=== PATIENT | male | born 1985 | race Caucasian/White ===

== ENCOUNTER 2017-02-18 14:00 | Emergency (ER) | payer MEDICARE ==
[~2017-02-18] VITALS: Ht 182.9 cm; Wt 72.6 kg
[~2017-02-18 14:00] MED LIST: DIVA125T2 PO; HALO5AMP3 PO; ZIPR20CA2 PO
[2017-02-18 14:02] VITALS: BP 128/73
[2017-02-18] MEDS ORDERED: BACITRACIN ZINC OINT 500U/GM, 0.9 GM ONE (14:43)
== END 2017-02-18 14:58 | disposition home or self-care (01) ==
LOC: ED 14:50
DX: S80.861A Insect bite (nonvenomous), right lower leg, initial encounter (principal); E11.9 Type 2 diabetes mellitus without complications; F17.200 Nicotine dependence, unspecified, uncomplicated; W57.XXXA Bitten or stung by nonvenomous insect and other nonvenomous arthropods, initial encounter; Y93.89 Activity, other specified; Y92.89 Other specified places as the place of occurrence of the external cause; Y99.8 Other external cause status
CPT/HCPCS: 99283

== ENCOUNTER 2017-02-23 19:44 | Observation (INO) | payer MEDICARE, MEDICAID ==
[~2017-02-23] VITALS: Ht 190.5 cm; Wt 86.4 kg
[2017-02-23 21:30] LABS: HEMATOCRIT 42.2 % (39.2-51.8); WHITE BLOOD COUNT 10.9 x10^3/uL (3.4-10)
[2017-02-23 21:42] LABS: ASPARTATE AMINO TRANSFERASE 38 U/L (15-37); BLOOD UREA NITROGEN 13 mg/dL (7-18)
[2017-02-23 21:45] LABS: ACETAMINOPHEN < 2 mcg/mL (10-30)
[2017-02-23] MEDS ORDERED: ZIPRASIDONE 20 MG INJ IM ONE (22:00)
[2017-02-24 01:33] LABS: DAU SCREEN DISCLAIMER
[2017-02-24] MEDS ORDERED: ZIPRASIDONE 20 MG INJ IM PRN (04:30)
[2017-02-24] MEDS ORDERED: BENZTROPINE 1 MG TABLET PO PRN (04:30)
[2017-02-24 08:56] VITALS: BP 122/77
== END 2017-02-24 21:05 ==
LOC: ED 19:49 → EDIP 02-24 02:27 → 3E 02-24 04:48
PROVIDERS: ADMIT Internal Medicine; ATTEND Internal Medicine
DX: F25.9 Schizoaffective disorder, unspecified (principal); R65.10 Systemic inflammatory response syndrome (SIRS) of non-infectious origin without acute organ dysfunction; T63.301A Toxic effect of unspecified spider venom, accidental (unintentional), initial encounter; R45.851 Suicidal ideations; F31.9 Bipolar disorder, unspecified; E11.9 Type 2 diabetes mellitus without complications; Z59.0 Homelessness; Y92.89 Other specified places as the place of occurrence of the external cause
CPT/HCPCS: 36415; 80053; 80307; 80329; 85025; 96372; 99285; G0378; J3486; G0480

== ENCOUNTER 2017-11-20 04:31 | Observation (INO) | payer MEDICARE ==
[~2017-11-20] VITALS: Ht 182.9 cm; Wt 74.2 kg
[2017-11-20] MEDS ORDERED: ZIPRASIDONE 20 MG INJ IM ONE ×2 (04:51→05:00)
[2017-11-20 05:27] LABS: AMPHETAMINE SCREEN, URINE Negative (Negative); BARBITURATE SCREEN, URINE Negative (Negative); BENZODIAZEPINE SCREEN, URINE Negative (Negative); CANNABINOID SCREEN, URINE Negative (Negative); COCAINE SCREEN, URINE Negative (Negative); METHADONE SCREEN, URINE Negative (Negative); OPIATE SCREEN, URINE Negative (Negative)
[2017-11-20 05:48] LABS: ALBUMIN 3.4 g/dL (3.4-5.0); ANION GAP 5 mmol/L (5-15); CALCIUM 7.8 mg/dL (8.5-10.1); CHLORIDE 108 mmol/L (98-107); CREATININE 0.72 mg/dL (0.7-1.3); SALICYLATE LEVEL 1.9 mg/dL (2.8-20.0)
[2017-11-20 05:50] LABS: ACETAMINOPHEN < 2 mcg/mL (10-30)
[2017-11-20 05:51] LABS: BASOPHILS # (AUTO) 0.02 x10^3/uL (0-0.1); BASOPHILS % (AUTO) 0 % (0-1); EOSINOPHILS # (AUTO) 0.19 x10^3/uL (0-0.4); EOSINOPHILS % (AUTO) 3 % (1-7); LYMPHOCYTES # (AUTO) 1.75 x10^3/uL (1-3.4); LYMPHOCYTES % (AUTO) 23 % (22-44); MD NO; MEAN CORPUSCULAR HEMOGLOBIN 31.2 pg (27.5-34.5); MEAN CORPUSCULAR HGB CONC 34.2 g/dL (33.2-36.2); MEAN CORPUSCULAR VOLUME 91.3 fL (81-97); MEAN PLATELET VOLUME 7.8 fL (7.4-10.4); MONOCYTES # (AUTO) 0.71 x10^3/uL (0.2-0.8); MONOCYTES % (AUTO) 9 % (2-9); NEUTROPHILS # (AUTO) 4.96 x10^3/uL (1.8-6.8); NEUTROPHILS % (AUTO) 65 % (42-75); PLATELET COUNT 255 x10^3/uL (130-400); RED BLOOD COUNT 3.91 x10^6/uL (4.38-5.82); RED CELL DISTRIBUTION WIDTH 13.7 % (9.4-14.8)
[2017-11-20] MEDS ORDERED: LORazepam 1MG TABLET PO PRN (12:30)
[2017-11-20 17:46] VITALS: BP 118/69
== END 2017-11-20 17:49 ==
LOC: ED 08:25 → EDIP 10:06
PROVIDERS: ADMIT Internal Medicine; ATTEND Internal Medicine
DX: R45.851 Suicidal ideations (principal); F31.9 Bipolar disorder, unspecified; F15.10 Other stimulant abuse, uncomplicated; F25.9 Schizoaffective disorder, unspecified; R45.850 Homicidal ideations; Z91.14 Patient's other noncompliance with medication regimen; Z59.0 Homelessness
CPT/HCPCS: 36415; 80048; 80307; 80329; 82040; 85025; 96372; 99285; G0378; J3486; G0480

== ENCOUNTER 2017-12-18 20:14 | Emergency (ER) | payer MEDICARE ==
[~2017-12-18] VITALS: Ht 182.9 cm; Wt 69.0 kg
[2017-12-18] MEDS ORDERED: LORazepam 2 MG/ML, 1ML ONE (21:20)
[2017-12-18] MEDS ORDERED: SODIUM CHLORIDE 0.9% 1,000ML IVBOLUS ONE ×2 (21:30→22:30)
[2017-12-18] MEDS ORDERED: PLEASE ENTER WEIGHT MC SCH (21:30)
[2017-12-18] MEDS ORDERED: PLEASE ENTER ALLERGIES MC SCH (21:30)
[2017-12-18] MEDS ORDERED: LORazepam 2 MG/ML, 1ML IVPush ONE (21:30)
[2017-12-18 21:53] LABS: ANION GAP 8 mmol/L (5-15); CHLORIDE 106 mmol/L (98-107); SALICYLATE LEVEL 2.5 mg/dL (2.8-20.0)
[2017-12-18 21:57] LABS: CREATINE KINASE, TOTAL 909 U/L (39-308); CREATININE 1.57 mg/dL (0.7-1.3)
[2017-12-18 21:59] LABS: BASOPHILS # (AUTO) 0.04 x10^3/uL (0-0.1); BASOPHILS % (AUTO) 0 % (0-1); EOSINOPHILS # (AUTO) 0.01 x10^3/uL (0-0.4); EOSINOPHILS % (AUTO) 0 % (1-7); LYMPHOCYTES # (AUTO) 1.29 x10^3/uL (1-3.4); LYMPHOCYTES % (AUTO) 13 % (22-44); MD NO; MEAN CORPUSCULAR HEMOGLOBIN 30.6 pg (27.5-34.5); MEAN CORPUSCULAR HGB CONC 33.4 g/dL (33.2-36.2); MEAN CORPUSCULAR VOLUME 91.5 fL (81-97); MEAN PLATELET VOLUME 8.6 fL (7.4-10.4); MONOCYTES # (AUTO) 0.98 x10^3/uL (0.2-0.8); MONOCYTES % (AUTO) 10 % (2-9); NEUTROPHILS # (AUTO) 7.42 x10^3/uL (1.8-6.8); NEUTROPHILS % (AUTO) 76 % (42-75); PLATELET COUNT 289 x10^3/uL (130-400); RED BLOOD COUNT 4.66 x10^6/uL (4.38-5.82); RED CELL DISTRIBUTION WIDTH 13.3 % (9.4-14.8)
[2017-12-18 22:01] LABS: ACETAMINOPHEN < 2 mcg/mL (10-30)
[2017-12-18] MEDS ORDERED: ZIPRASIDONE 20 MG INJ IM ONE (22:30)
[2017-12-19] MEDS ORDERED: SODIUM CHLORIDE 0.9% 1,000ML IVBOLUS ONE (00:30)
[2017-12-19 01:34] VITALS: BP 152/86
== END 2017-12-19 04:02 | disposition home or self-care (01) ==
LOC: EDBD 20:14 → ED 23:59 → MERGE 23:59 → ED 12-19 04:02
DX: F15.150 Other stimulant abuse with stimulant-induced psychotic disorder with delusions (principal); F15.151 Other stimulant abuse with stimulant-induced psychotic disorder with hallucinations; E86.0 Dehydration; N17.9 Acute kidney failure, unspecified; Z72.9 Problem related to lifestyle, unspecified
CPT/HCPCS: 36415; 80048; 80307; 80329; 82550; 85025; 96361; 96374; 99291; J2060; J7030; G0480

== ENCOUNTER 2018-04-20 15:05 | Emergency (ER) | payer MEDICARE ==
[~2018-04-20] VITALS: Ht 180.3 cm; Wt 73.0 kg
[2018-04-20 15:26] VITALS: BP 132/82
[2018-04-20] MEDS ORDERED: KETOROLAC 30 MG/1 ML IM ONE (16:00)
[2018-04-20] MEDS ORDERED: KETOROLAC 30 MG/1 ML ONE (16:05)
== END 2018-04-20 16:57 | disposition home or self-care (01) ==
LOC: ED 16:51
DX: S20.01XA Contusion of right breast, initial encounter (principal); F17.200 Nicotine dependence, unspecified, uncomplicated; Y04.0XXA Assault by unarmed brawl or fight, initial encounter; Y93.89 Activity, other specified; Y99.8 Other external cause status; Y92.410 Unspecified street and highway as the place of occurrence of the external cause
CPT/HCPCS: 71101; 96372; 99284; J1885

== ENCOUNTER 2018-11-07 10:23 | Emergency (ER) | payer MEDICARE ==
[~2018-11-07] VITALS: Ht 172.7 cm; Wt 74.3 kg
[2018-11-07 10:25] VITALS: BP 140/80
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
--- NOTE | 2018-11-07 10:30 | NUR ---
PT AMBULATED TO RESTROOM WITH STEADY GAIT, CLEAN CATCH UA COLLECTED AND WALKED TO LAB FOR DOA UA ORDER.
--- NOTE | 2018-11-07 10:45 | NUR ---
[facility] CALLED PER DR. MCDUFFIE, SPOKE WITH ELADIO IN ADMISSION, [facility] TO DELIVER LEGAL HOLD THAT PT WAS PLACED ON AT [facility] TO ER PT DID NOT ARRIVE WITH IT.
[2018-11-07 11:02] LABS: AMPHETAMINE SCREEN, URINE Positive (Negative); BARBITURATE SCREEN, URINE Negative (Negative); BENZODIAZEPINE SCREEN, URINE Negative (Negative); CANNABINOID SCREEN, URINE Negative (Negative); COCAINE SCREEN, URINE Negative (Negative); METHADONE SCREEN, URINE Negative (Negative); OPIATE SCREEN, URINE Negative (Negative)
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
[2018-11-07 11:15] LABS: BASOPHILS # (AUTO) 0.03 x10^3/uL (0-0.1); BASOPHILS % (AUTO) 0 % (0-1); EOSINOPHILS # (AUTO) 0.06 x10^3/uL (0-0.4); EOSINOPHILS % (AUTO) 1 % (1-7); LYMPHOCYTES # (AUTO) 1.62 x10^3/uL (1-3.4); LYMPHOCYTES % (AUTO) 20 % (22-44); MD NO; MEAN CORPUSCULAR HEMOGLOBIN 30.5 pg (27.5-34.5); MEAN CORPUSCULAR HGB CONC 33.1 g/dL (33.2-36.2); MEAN CORPUSCULAR VOLUME 92.1 fL (81-97); MEAN PLATELET VOLUME 8.1 fL (7.4-10.4); MONOCYTES # (AUTO) 0.92 x10^3/uL (0.2-0.8); MONOCYTES % (AUTO) 11 % (2-9); NEUTROPHILS # (AUTO) 5.54 x10^3/uL (1.8-6.8); NEUTROPHILS % (AUTO) 68 % (42-75); PLATELET COUNT 294 x10^3/uL (130-400); RED BLOOD COUNT 4.32 x10^6/uL (4.38-5.82); RED CELL DISTRIBUTION WIDTH 14.4 % (9.4-14.8)
[2018-11-07 11:17] LABS: ALANINE AMINOTRANSFERASE 28 U/L (12-78); ANION GAP 9 mmol/L (5-15); CALCIUM 8.3 mg/dL (8.5-10.1); CHLORIDE 107 mmol/L (98-107)
[2018-11-07] MEDS ORDERED: LORazepam 1MG TABLET ONE (11:24)
--- NOTE | 2018-11-07 11:28 | NUR ---
PT MEDICATED NOTED PER DR. MCDUFFIE FOR ANXIETY/FLIGHT OF IDEAS. PT COOPERATIVE AND AGREES TO TAKE MEDICATION, TOLERATING PO WELL. TALKING AND LAUGHING AT SELF, REPEATING "MAN IT'S A SWEET ONE." RESTING IN POSITION OF COMFORT ON GURNEY. SITTER AT DOOR FOR CONTINUOUS SAFETY OBSERVATION. FALL PRECAUTIONS IN PLACE
[2018-11-07] MEDS ORDERED: LORazepam 1MG TABLET PO ONE (11:30)
[2018-11-07 11:31] LABS: ALKALINE PHOSPHATASE 86 U/L (45-117); BILIRUBIN,TOTAL 0.6 mg/dL (0.2-1.0); CREATINE KINASE, TOTAL 1145 U/L (39-308); TOTAL PROTEIN 6.9 g/dL (6.4-8.2)
[2018-11-07 11:32] LABS: ACETAMINOPHEN < 2 mcg/mL (10-30); SALICYLATE LEVEL < 1.7 mg/dL (2.8-20.0)
--- NOTE | 2018-11-07 11:52 | NUR ---
TELEPSYCH ROBOT PLACED AT BEDSIDE FOR EVALUATION PER
--- NOTE | 2018-11-07 12:18 | NUR ---
PT RESTING IN POSITION OF COMFORT ON ED GURNEY. RAPID SPEECH DECREASED, STILL FLIGHT OF IDEAS AND TALKING TO SELF. MORE CALM AND REMAINS COOPERATIVE, AWAITING TELEPYSCH CONSULT. SITTER AT DOOR FOR CONTINUOUS SAFETY OBSERVATION. REPORT TO TELEPYESDRAS ALARCON AT THIS TIME.
--- NOTE | 2018-11-07 12:25 | NUR ---
DR. ALARCON ON TELEPYSCH ROBOT FOR EVAL AT BEDSIDE
--- NOTE | 2018-11-07 12:41 | NUR ---
PT REQUESTING FOOD, SI PRECAUTION DIET TRAY ORDERED PER DR. LAW CARO
--- NOTE | 2018-11-07 13:10 | NUR ---
DIET OFFICE CALLED FOR MEAL TRAY FOR FOLLOW UP TO ORDER, TO BE DELIVERED. PER DR. MCDUFFIE AND MIRELA VAZQUEZ, PT TO BE DISCHARGE AND LEGAL HOLD DISCONTINUED, AWAITING DISCHARGE PAPERS AND CLEARANCE FROM DR. MCDUFFIE
--- NOTE | 2018-11-07 13:24 | NUR ---
REPORT AND CARE TO RAMON JOSHI AT THIS TIME
== END 2018-11-07 14:21 | disposition home or self-care (01) ==
LOC: ED 10:55
DX: F15.129 Other stimulant abuse with intoxication, unspecified (principal); F15.159 Other stimulant abuse with stimulant-induced psychotic disorder, unspecified; E11.9 Type 2 diabetes mellitus without complications; F25.9 Schizoaffective disorder, unspecified; Z72.9 Problem related to lifestyle, unspecified
CPT/HCPCS: 36415; 80053; 80307; 82550; 84443; 85025; 93005; 99284

== ENCOUNTER 2018-12-05 13:17 | Emergency (ER) | payer MEDICARE ==
[~2018-12-05] VITALS: Ht 182.9 cm; Wt 80.6 kg
[2018-12-05 13:21] VITALS: BP 123/75
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
--- NOTE | 2018-12-05 13:48 | NUR ---
REPORT TO MADELYN NAVARRO.
[2018-12-05 13:56] LABS: BASOPHILS # (AUTO) 0.03 x10^3/uL (0-0.1); BASOPHILS % (AUTO) 1 % (0-1); EOSINOPHILS # (AUTO) 0.25 x10^3/uL (0-0.4); EOSINOPHILS % (AUTO) 4 % (1-7); LYMPHOCYTES # (AUTO) 1.06 x10^3/uL (1-3.4); LYMPHOCYTES % (AUTO) 16 % (22-44); MD NO; MEAN CORPUSCULAR HEMOGLOBIN 30.5 pg (27.5-34.5); MEAN CORPUSCULAR HGB CONC 33.1 g/dL (33.2-36.2); MEAN CORPUSCULAR VOLUME 92.4 fL (81-97); MEAN PLATELET VOLUME 7.6 fL (7.4-10.4); MONOCYTES % (AUTO) 9 % (2-9); NEUTROPHILS # (AUTO) 4.74 x10^3/uL (1.8-6.8); NEUTROPHILS % (AUTO) 71 % (42-75); PLATELET COUNT 311 x10^3/uL (130-400); RED BLOOD COUNT 3.95 x10^6/uL (4.38-5.82); RED CELL DISTRIBUTION WIDTH 13.9 % (9.4-14.8)
[2018-12-05 14:07] LABS: ALANINE AMINOTRANSFERASE 20 U/L (12-78); ALBUMIN 3.2 g/dL (3.4-5.0); ANION GAP 6 mmol/L (5-15); CALCIUM 8.2 mg/dL (8.5-10.1); CHLORIDE 112 mmol/L (98-107)
[2018-12-05 14:09] LABS: SALICYLATE LEVEL < 1.7 mg/dL (2.8-20.0)
[2018-12-05 14:09] LABS: AMPHETAMINE SCREEN, URINE Positive (Negative); BARBITURATE SCREEN, URINE Negative (Negative); BENZODIAZEPINE SCREEN, URINE Negative (Negative); CANNABINOID SCREEN, URINE Negative (Negative); COCAINE SCREEN, URINE Negative (Negative); METHADONE SCREEN, URINE Negative (Negative); OPIATE SCREEN, URINE Negative (Negative)
[2018-12-05 14:14] LABS: ALKALINE PHOSPHATASE 65 U/L (45-117); TOTAL PROTEIN 6.1 g/dL (6.4-8.2)
[2018-12-05] MEDS ORDERED: SULFAMETH./TRIMETHOPRIM DS 800MG/160MG TABLET PO ONE (14:30)
[2018-12-05 14:45] LABS: BILIRUBIN,TOTAL < 0.1 mg/dL (0.2-1.0)
[2018-12-05] MEDS ORDERED: SULFAMETH./TRIMETHOPRIM DS 800MG/160MG TABLET ONE (15:19)
== END 2018-12-05 15:43 | disposition home or self-care (01) ==
LOC: ED 14:07
DX: F25.1 Schizoaffective disorder, depressive type (principal); L03.114 Cellulitis of left upper limb; R45.851 Suicidal ideations; F15.10 Other stimulant abuse, uncomplicated; Z00.01 Encounter for general adult medical examination with abnormal findings; E11.9 Type 2 diabetes mellitus without complications; F17.200 Nicotine dependence, unspecified, uncomplicated
CPT/HCPCS: 36415; 80053; 80164; 80307; 85025; 99284